=== PATIENT | male | born 1980 | race Two or more races ===

== ENCOUNTER 2016-04-23 15:24 | Emergency (ER) | payer MEDICAID ==
[~2016-04-23] VITALS: Ht 180.3 cm; Wt 113.4 kg
[2016-04-23 16:01] VITALS: BP 123/82
== END 2016-04-23 19:56 | disposition left against medical advice (07) ==
LOC: ER 15:40
DX: M79.605 Pain in left leg (principal); Z53.21 Procedure and treatment not carried out due to patient leaving prior to being seen by health care provider